=== PATIENT | male | born 1950 | race Caucasian/White ===

== ENCOUNTER → 2019-08-29 09:33 | Outpatient (BNVA) | payer MEDICARE, MEDICAID, SELFPAY | PROVIDERS: Family Provider Nurse Practitioner Family; PCP Nurse Practitioner Family; Visit Provider Nurse Practitioner | DX: G89.29 Other chronic pain (principal); M54.6 Pain in thoracic spine; M54.5 Low back pain; F17.210 Nicotine dependence, cigarettes, uncomplicated; Z79.891 Long term (current) use of opiate analgesic | CPT/HCPCS: 99214 ==

== ENCOUNTER → 2019-10-30 12:27 | Outpatient (BNVA) | payer MEDICARE, MEDICAID, SELFPAY | PROVIDERS: Family Provider Nurse Practitioner Family; PCP Nurse Practitioner Family; Visit Provider Anesthesiology | DX: G89.29 Other chronic pain (principal); M54.5 Low back pain; M79.651 Pain in right thigh; M79.652 Pain in left thigh; M54.2 Cervicalgia; F17.210 Nicotine dependence, cigarettes, uncomplicated; Z79.891 Long term (current) use of opiate analgesic; Z71.6 Tobacco abuse counseling | CPT/HCPCS: 99214 ==

== ENCOUNTER → 2020-02-24 08:38 | Outpatient (BNVA) | payer MEDICARE, MEDICAID, SELFPAY | PROVIDERS: Family Provider Nurse Practitioner Family; PCP Nurse Practitioner Family; Visit Provider Nurse Practitioner | DX: G89.29 Other chronic pain (principal); M54.5 Low back pain; F17.210 Nicotine dependence, cigarettes, uncomplicated; Z79.891 Long term (current) use of opiate analgesic; Z71.6 Tobacco abuse counseling | CPT/HCPCS: 99213 ==

== ENCOUNTER → 2020-04-23 08:47 | Outpatient (BNVA) | payer MEDICARE, MEDICAID, SELFPAY | PROVIDERS: Family Provider Nurse Practitioner Family; PCP Nurse Practitioner Family; Visit Provider Nurse Practitioner | DX: G89.29 Other chronic pain (principal); M54.42 Lumbago with sciatica, left side; M54.41 Lumbago with sciatica, right side; M54.2 Cervicalgia; F17.210 Nicotine dependence, cigarettes, uncomplicated; Z79.891 Long term (current) use of opiate analgesic; Z71.6 Tobacco abuse counseling | CPT/HCPCS: 99213 ==

== ENCOUNTER → 2020-06-25 07:58 | Outpatient (BNVA) | payer MEDICARE, MEDICAID, SELFPAY | PROVIDERS: Family Provider Nurse Practitioner Family; PCP Nurse Practitioner Family; Visit Provider Anesthesiology | DX: G89.29 Other chronic pain (principal); M54.5 Low back pain; M54.2 Cervicalgia; R20.0 Anesthesia of skin; R20.2 Paresthesia of skin; F17.210 Nicotine dependence, cigarettes, uncomplicated; Z79.891 Long term (current) use of opiate analgesic; Z71.6 Tobacco abuse counseling | CPT/HCPCS: 99214 ==

== ENCOUNTER → 2020-08-24 08:27 | Outpatient (BNVA) | payer MEDICARE, MEDICAID, SELFPAY | PROVIDERS: Family Provider Nurse Practitioner Family; PCP Nurse Practitioner Family; Visit Provider Nurse Practitioner | DX: G89.29 Other chronic pain (principal); M54.5 Low back pain; M54.2 Cervicalgia; F17.210 Nicotine dependence, cigarettes, uncomplicated; Z71.6 Tobacco abuse counseling; Z79.899 Other long term (current) drug therapy; Z79.891 Long term (current) use of opiate analgesic | CPT/HCPCS: 99213; 99214 ==

== ENCOUNTER → 2020-10-19 08:35 | Outpatient (BNVA) | payer MEDICARE, MEDICAID, SELFPAY | PROVIDERS: Family Provider Nurse Practitioner Family; PCP Nurse Practitioner Family; Visit Provider Nurse Practitioner | DX: G89.29 Other chronic pain (principal); M54.5 Low back pain; M54.2 Cervicalgia; R20.0 Anesthesia of skin; R20.2 Paresthesia of skin; F17.210 Nicotine dependence, cigarettes, uncomplicated; Z79.899 Other long term (current) drug therapy; Z71.6 Tobacco abuse counseling | CPT/HCPCS: 99213; 99214 ==

== ENCOUNTER → 2020-11-23 08:09 | Outpatient (BNVA) | payer MEDICARE, MEDICAID, SELFPAY | PROVIDERS: Family Provider Nurse Practitioner Family; PCP Nurse Practitioner Family; Visit Provider Anesthesiology | DX: G89.29 Other chronic pain (principal); M54.5 Low back pain; F17.210 Nicotine dependence, cigarettes, uncomplicated; Z79.899 Other long term (current) drug therapy; Z79.891 Long term (current) use of opiate analgesic; Z71.6 Tobacco abuse counseling | CPT/HCPCS: 99213 ==

== ENCOUNTER → 2021-01-21 08:21 | Outpatient (BNVA) | payer MEDICARE, MEDICAID, SELFPAY | PROVIDERS: Family Provider Nurse Practitioner Family; PCP Nurse Practitioner Family; Visit Provider Anesthesiology | DX: G89.29 Other chronic pain (principal); M54.5 Low back pain; M54.2 Cervicalgia; R20.0 Anesthesia of skin; R20.2 Paresthesia of skin; F17.210 Nicotine dependence, cigarettes, uncomplicated; Z79.891 Long term (current) use of opiate analgesic | CPT/HCPCS: 99214 ==

== ENCOUNTER → 2021-03-22 08:50 | Outpatient (BNVA) | payer MEDICARE, MEDICAID, SELFPAY | PROVIDERS: Family Provider Nurse Practitioner Family; PCP Nurse Practitioner Family; Visit Provider Anesthesiology | DX: G89.29 Other chronic pain (principal); M54.5 Low back pain; M54.2 Cervicalgia; F17.210 Nicotine dependence, cigarettes, uncomplicated; Z79.891 Long term (current) use of opiate analgesic | CPT/HCPCS: 99214 ==

== ENCOUNTER → 2021-05-20 08:07 | Outpatient (BNVA) | payer MEDICARE, MEDICAID, SELFPAY | PROVIDERS: Family Provider Nurse Practitioner Family; PCP Nurse Practitioner Family; Visit Provider Anesthesiology | DX: G89.29 Other chronic pain (principal); M54.50 Low back pain, unspecified; M54.2 Cervicalgia; F17.210 Nicotine dependence, cigarettes, uncomplicated; Z79.891 Long term (current) use of opiate analgesic | CPT/HCPCS: 99214 ==

== ENCOUNTER → 2021-07-20 08:19 | Outpatient (BNVA) | payer MEDICARE, MEDICAID, SELFPAY | PROVIDERS: Family Provider Nurse Practitioner Family; PCP Nurse Practitioner Family; Visit Provider Anesthesiology | DX: G89.29 Other chronic pain (principal); M54.50 Low back pain, unspecified; M54.2 Cervicalgia; F17.200 Nicotine dependence, unspecified, uncomplicated; Z79.899 Other long term (current) drug therapy; Z79.891 Long term (current) use of opiate analgesic; Z71.6 Tobacco abuse counseling | CPT/HCPCS: 99214 ==

== ENCOUNTER → 2021-09-21 07:47 | Outpatient (BNVA) | payer MEDICARE, MEDICAID, SELFPAY | PROVIDERS: Family Provider Nurse Practitioner Family; PCP Nurse Practitioner Family; Visit Provider Anesthesiology | DX: G89.29 Other chronic pain (principal); M54.50 Low back pain, unspecified; M54.2 Cervicalgia; F17.210 Nicotine dependence, cigarettes, uncomplicated; Z79.891 Long term (current) use of opiate analgesic; Z71.6 Tobacco abuse counseling | CPT/HCPCS: 99214 ==

== ENCOUNTER 2022-05-03 12:49 | Outpatient (CLI) | payer MEDICARE, MEDICAID, SELFPAY ==
--- NOTE | 2022-05-03 13:04 | US_ITS ---
WS: [id number] ULTRASOUND SOFT TISSUES LEFT neck. HISTORY: CERVICAL LYMPHADENOPATHY/SKIN LESION COMPARISON: None available. TECHNIQUE: 2-D and color Doppler imaging is submitted. Hypoechoic lobulated soft tissue masses with increased vascularity in the LEFT neck. Lymph nodes are localized in the inferior articular region. Abnormal mass along the cervical chain. These are lymph n odes which are abnormal in echogenicity and vascularity. The largest cluster measures 1.6 x 1.0 x 1.0 cm. This is probably several adjacent lymph nodes. US/US soft tissue head neck [id number] IMPRESSION: LEFT neck mass. Favor lymphadenopathy. Recommend neck CT with IV contrast. This will help determine if these are lymph nodes or mass associated with the saliv kala gland.
== END 2022-05-03 12:50 | disposition home or self-care (01) ==
LOC: RAD 12:49
PROVIDERS: PCP Nurse Practitioner Family; Visit Provider Nurse Practitioner Family
DX: R59.0 Localized enlarged lymph nodes (principal); L98.9 Disorder of the skin and subcutaneous tissue, unspecified
CPT/HCPCS: 76536

== ENCOUNTER 2022-06-13 10:16 | Outpatient (CLI) | payer MEDICARE, MEDICAID, SELFPAY ==
--- NOTE | 2022-06-13 10:28 | CT_ITS ---
WS: [id number] CT NECK TECHNIQUE: Contrast-enhanced CT of the neck with coronal and sagittal reformatted images. CLINICAL INFORMATION: CERVICAL LYMPHADENOPATHY COMPARISON: Ultrasound May 03, 2022 DLP: 251.[address] scans at [facility] use at least one of these dose optimization techniques: automated e xposure control; mA and/or kV adjustment per patient size (includes targeted exams where dose is matc hed to clinical indication); or iterative reconstruction. FINDINGS: Heterogeneous enhancing lobulated lesion in the deep lobe LEFT parotid extending to the tail compatib le with previously described lesion on the ultrasound. This measures approximately 1.9 x 1.5 x 2.6 cm . Findings suspicious for parotid neoplasm. Recommend ENT consultation. Associated peripheral vascula rity. Lesion is intensely enhancing. Additional similar enhancing lymph nodes superficial and deep to the sternocleidomastoid suspicious f or metastatic lymphadenopathy measuring up to 16 mm. Mastoid air cells are well aerated. Paranasal sinuses are well aerated. Normal parapharyngeal fat. No rmal posterior nasopharynx. No evidence of supraglottic or glottic mass. Normal piriform sinuses. Sub glottic airway is patent. Normal thyroid gland enhancement. Lung apices are well aerated. Straightening of the normal cervical lordosis. Mild spondylitic changes. Disc space narrowing worse a t C5-C7. CT/CT neck w con* [id number] IMPRESSION: 1. Lobulated intensely enhancing intraparotid lesion involving the deep lobe a nd tail of the parotid gland corresponds to the ultrasound findings suspicious for neoplasm. Recommend ENT consultation in further evaluation. 2. Enhancing suspicious lymph nodes superficial and deep to the LEFT parotid g land suspicious for metastatic lymphadenopathy measuring up to 16 mm. 3. No visualized enlarged RIGHT cervical lymph nodes 4. No other suspicious findings.
[2022-06-13 11:11] LABS: Blood Urea Nitrogen 10 mg/dL (8-23)
[2022-06-13] MEDS: iohexol 350 mg/mL 100 mL Btl IV (11:15)
== END 2022-06-13 10:17 | disposition home or self-care (01) ==
PROVIDERS: PCP Nurse Practitioner Family; Visit Provider Nurse Practitioner Family
DX: R59.0 Localized enlarged lymph nodes (principal)
CPT/HCPCS: 70491; 82565; 84520

== ENCOUNTER → 2022-06-23 10:07 | Outpatient (BNVA) | payer MEDICARE, MEDICAID, SELFPAY | PROVIDERS: PCP Nurse Practitioner Family; Visit Provider Otolaryngology | DX: K11.8 Other diseases of salivary glands (principal); R22.1 Localized swelling, mass and lump, neck; F17.210 Nicotine dependence, cigarettes, uncomplicated | CPT/HCPCS: 99203 ==

== ENCOUNTER 2022-07-26 10:53 | Outpatient (CLI) | payer MEDICARE, MEDICAID, SELFPAY ==
--- NOTE | 2022-07-26 12:37 | US_ITS ---
WS: [id number] ULTRASOUND PAROTID FNA CLINICAL INFORMATION: Left sided parotid gland mass TECHNIQUE: Ultrasound-guided FNA FINDINGS: The procedure including risks, benefits, and complications were discussed with the patient who agreed to proceed. Timeout was performed. Using sterile technique patient was prepped and draped in usual sterile fashion. After 1% lidocaine, using ultrasound guidance, a 25-gauge needle was advanc ed into the LEFT parotid mass . 5 passes were made with active aspiration. Pathology was present for slide preparation. No immediate complications. Patient remained in the ultrasound suite 15 minutes postprocedure with intermittent ultrasound to ens ure no hematoma. No hematoma 15 minutes postprocedure. US/US biopsy/FNA thyroid [id number] IMPRESSION: Uncomplicated ultrasound-guided parotid mass FNA
[2022-07-27 13:06] LABS: Lymphoma Profile (BBPL) See Report
== END 2022-07-26 10:54 | disposition home or self-care (01) ==
LOC: RAD 10:53
PROVIDERS: PCP Nurse Practitioner Family; Visit Provider Otolaryngology
DX: K11.8 Other diseases of salivary glands (principal)
CPT/HCPCS: 10005; 88108; 88184; 88185

== ENCOUNTER → 2022-08-07 09:09 | Outpatient (BNVA) | payer MEDICARE, MEDICAID, SELFPAY | PROVIDERS: PCP Nurse Practitioner Family; Visit Provider Otolaryngology | DX: K11.8 Other diseases of salivary glands (principal); R59.0 Localized enlarged lymph nodes; F17.210 Nicotine dependence, cigarettes, uncomplicated | CPT/HCPCS: 99213 ==

== ENCOUNTER → 2022-09-15 08:57 | Outpatient (BNVA) | payer MEDICARE, MEDICAID, SELFPAY | PROVIDERS: PCP Nurse Practitioner Family; Visit Provider Otolaryngology | DX: K11.8 Other diseases of salivary glands (principal); R59.0 Localized enlarged lymph nodes | CPT/HCPCS: 99214; 99215 ==

== ENCOUNTER 2022-09-28 06:55 | Day surgery (SDC) | payer MEDICARE, MEDICAID, SELFPAY ==
[2022-09-27 12:56] VITALS: BMI 28.4
[2022-09-28] VITALS (10 sets, daily range): BP systolic 122–160; BP diastolic 73–103; PULSE 51–101; RESP 6–20; TEMP 36.1–36.7; O2SAT 93–98
--- NOTE | 2022-09-28 07:08 | ECG_ITS ---
[facility] Test Date: 2022-09-28 Pat Name: Joey Soliz Department: Room: Gender: Male Catering Server: : 1950 Requested By: Madalyn Johnson Order Number: [id number] Dharmesh MD: Elaina Yanez M.D. Measurements Intervals [place] Rate: 52 P: 49 MA: 192 QRS: -23 QRSD: 91 T: 58 QT: 449 QTc: 419 Interpretive Statements SINUS BRADYCARDIA BORDERLINE LEFT AXIS DEVIATION [QRS AXIS < -20] Compared to ECG 07/19/2016 10:59:54 Sinus rhythm no longer present Electronically Signed On 09-29-2022 8:15:59 CHAIR [employer]KER by Elaina Yanez M.D. [email or web address]
[2022-09-28] MEDS: sodium chloride 0.9% 1,000 ML 30 ML IV (07:30)
--- NOTE | 2022-09-28 07:59 | ANES.PREANE2 ---
Pre-Anesthetic Assessment Height/Weight: Height 1.68 m Weight 79.832 kg Temp Pulse Resp BP Pulse Ox O2 Del Method 98.1 F 51 L 18 148/88 95 09/28/22 07:10 09/28/22 07:10 09/28/22 07:10 09/28/22 07:10 09/28/22 07:10 09/28/22 07:12 Preop Diagnosis: Left parotid mass with cervical lymphadenopathy Operation Date: 09/28/22 08:35 Proposed Procedures p left sided parotidectomy with lymph node resection 60795 ,K11.8(Left) - Tony Novak MD Familial anesthetic complications: None Was Beta Alfonzo taken within 24 hours: N/A Was Clonidine taken within 24 hours: N/A Last intake: Intake Last Liquid Date 09/27/22 Last Liquid Time 22:00 Last Solid Date 09/27/22 Last Solid Time 12:00 Social Tobacco and No alcohol Exam alert, oriented x 3, clear to auscultation bilaterally and regular rate & rhythm Airway Mallampati: Class IV Dentition: false Pulmonary Chronic Obstructive Pulmonary Disease CV/HEM Hypertension GI Gastroesophageal Reflux Disease Metabolic Hyperlipidemia Neuropsych Cerebrovascular Accident Anesthetic Plan ASA status: 4 Anesthesia: General Risk of > 500 ml blood loss (7ml/kg in children): No Medications/Allergies Home Medications Medication Instructions Recorded Confirmed Last Taken Type pantoprazole 40 mg tablet,delayed 40 mg PO QAM 08/29/19 09/27/22 09/27/22 History release simvastatin 40 mg tablet 40 mg PO .DAY 08/29/19 09/27/22 09/27/22 History aspirin 81 mg tablet 81 mg PO DAILY 10/30/19 09/27/22 1 Month Ago History ~08/27/22 tamsulosin 0.4 mg capsule (Flomax) 0.8 mg PO DAILY 10/30/19 09/27/22 09/27/22 History lisinopril 10 mg tablet 10 mg PO DAILY 07/20/21 09/27/22 09/27/22 History hydrocodone 10 mg-acetaminophen 1 tab PO .6 times a day PRN pain 09/21/21 09/27/22 09/27/22 Rx 325 mg tablet 30 days #180 tabs Allergies Allergy/AdvReac Type Severity Reaction Status Date / Time duloxetine Allergy Severe ADR-Itching Verified 09/27/22 12:50 gabapentin AdvReac Unknown DIZZINESS, Verified 09/27/22 12:50 NAUSEA PFSH Anesthesia Medical History Chronic low back pain Chronic neck pain Cigarette smoker motivated to quit Encounter for long-term opiate analgesic use Long-term use of high-risk medication Continue to monitor use of medication Neck pain of over 3 months duration Numbness and tingling Upper thigh bilateral Smoker counselled regarding smoking cessation Surgical History S/P appendectomy S/P cholecystectomy S/P thoracotomy 04/19/19 IN [place] FOR THE LUNG NODULE Family History Father CAD (coronary artery disease) Social History Smoking and tobacco status: current every day smoker (1 ppd) cigarettes Packs smoked per day: 1 Alcohol intake: never History of recent travel: No Data Anesthesia Cardiac Studies: No Data to Display
--- NOTE | 2022-09-28 08:32 | W.PM.OPSUD ---
Surgery/Procedure H&P Update DATE OF PROCEDURE: September 28, 2022 DATE H&P PERFORMED: 09/15/22 H&P UPDATE INFORMATION: I have reviewed H&P completed within last 30 days, I have examined patient prior to procedure and No changes to prior documentation CHANGES TO PREVIOUS DOCUMENTATION: No changes PREOP DIAGNOSIS: Left parotid mass with cervical lymphadenopathy PRIMARY INDICATION FOR PROCEDURE: Left parotid mass with left cervical lymphadenopathy PLANNED PROCEDURE: Operation Date: 09/28/22 08:35 Proposed Procedures p left sided parotidectomy with lymph node resection 88372 ,K11.8(Left) - Tony Novak MD
[2022-09-28] MEDS: ceFAZolin 2,000 MG in sodium chloride 0.9% (plus) 50 ML 100 MG IV (08:46)
[2022-09-28] MEDS: lidocaine-epi 2% 1.7mL Cartridge (OR Only) 6.8 ML XX (09:05)
--- NOTE | 2022-09-28 10:54 | PC.NURSE ---
sent message to significant other that everything is going well, waiting for pathology and still working.
--- NOTE | 2022-09-28 11:35 | PM.OP ---
Operative Report Date of procedure: September 28, 2022 Pre-op diagnosis: Preop Diagnosis Left parotid mass with cervical lymphadenopathy Post-op diagnosis: Left parotid mass with atypical cellular findings. Defer to permanent pathology. Lymph nodes left neck uncertain pathology. Post-op findings: Patient has a solid tumor in the lateral lobe of the left parotid gland inferiorly. Facial nerve identified and dissected. Preserved. Cervical lymphadenectomy also performed for diagnostic purpose. Most inferior node removed measuring approximately 3 cm x 1.5 x 1.5 cm Procedure done: Left lateral lobe parotidectomy with facial nerve dissection and preservation. Cervical lymphadenectomy left neck. Implants: Quarter inch [place] drain. Specimens removed/disposition: Lateral lobe of thyroid and left neck lymph nodes Pathology: Same Surgeon: Tony Novak MD Anesthesia: General and Local Estimated blood loss: 200 mL Complications: No complications encountered Findings: Patient noted to have an enlarging left lower tail of parotid region mass with lymph nodes. These were found on ultrasound and subsequent CT scan. Brought to the operating room today to undergo lateral lobe parotidectomy and possible neck dissection or lymphadenectomy for diagnostic purposes. Brief History: 72-year-old male patient had a left parotid mass with cervical lymphadenopathy found on CT scan and ultrasound. Being brought to the operating room at this time to undergo left parotidectomy lateral lobe with facial nerve dissection and preservation and either lymphadenectomy or left neck dissection if appropriate based on pathology. The procedures risks and complications were explained in detail. These risks include bleeding infection numbness scarring swelling bruising. Is understood that there will be cosmetic change. Understood that there may be numbness around the ear front and back as well as weakness of any or all branches of the facial nerve which could be temporary or permanent. Other nerves involving the tongue and vocal cords and shoulder are also at potential risk. Anesthetic risks were discussed as well. With all these things understood informed consent was granted and witnessed. Other potential problems include Sheryl syndrome or gustatory sweating and fistula or sinus tract formation or seroma or hematoma. Procedure: Description of procedure: The patient was placed on the operating table in the supine position. Adequate general endotracheal tube anesthesia was obtained. He was repositioned into a semirecumbent position. Left neck was exposed. Patient received antibiotics for prophylaxis. The patient had the sign the site noted and the area of the incision cleansed with alcohol. Then a total of 6.8 mL of 2% Xylocaine with 1-100,000 epinephrine was used to infiltrate the area of the skin incision. A timeout was accomplished identifying the patient date of plan procedure allergies fire risk and medications given. With all in agreement the procedure continued. The patient was prepped and draped in usual fashion. A marking pen was used to create the incision with the preauricular extension up to the top of the ear extending down around the ear lobule at 90 degrees and then another curve 90 degrees ending into a lower neck skin crease line. This incision was created with cut mode of the Bovie on low power. Then this was carried down to the parotid fascia level with careful dissection. The greater auricular nerve was identified and dissected up as far as I could go to preserve it until it showed that it went and extended into the parotid tumor mass. The dissection was then carried out finding the tragal pointer and following it down to the location of the trunk of the facial nerve. All this dissection was done very carefully and bipolar cautery was utilized for cutting through the subcutaneous tissues and small vessels. Then the inferior most aspect of the facial nerve branch was followed to its extension outside of the parotid gland inferiorly. Then the marginal mandibular branch buccal branch zygomatic branch and frontal branches were identified and dissected free as well. The parotid resection of the lateral lobe was then forwarded to pathology for frozen section. All that was pending hemostasis was obtained with bipolar cautery. Then it was decided to dissect down to the lowest of the lymph nodes that was the largest. This was down in the level 3 and 4 region. Careful dissection was carried out and again hemostasis obtained with bipolar cautery. The specimen was resected measuring approximately 3 x 1-1/2 x 1-1/2 cm. This was sent fresh to pathology as well. At this point pathology called back with the frozen section of the parotid tumor saying that there were some atypical cells but he could not make a call regarding type. Possibly a pleomorphic adenoma or possibly a carcinoma ex pleomorphic adenoma. He wants to defer to permanent section. He did not see anything for sure on the lymph node that would make us suspicious however he did want to do lymph testing on that and the tumor itself. The surgical defect was then irrigated with sterile water. Greater auricular nerve endings were placed in the proper position. 1/4 inch [place] drain was placed to the depths of the defect and out the anterior inferior aspect of the neck incision. Then the incision was closed with interrupted 4-0 chromic to close the subcutaneous layer and then skin jose c to close the skin. The area was then cleansed. Drapes were removed. Neosporin ointment was applied over the incision. Fluffs were placed and Kerlix rolls were placed around his neck and over his forehead and left side of the face. These were taped in place. Patient tolerated the procedure well and was turned over to anesthesia for wake-up and extubation. Estimated blood loss for the procedure was 200 mL.
[2022-09-28] MEDS: neomycin-poly-bacitracin oint 28 gm 1 APPLIC TOPICAL (11:37)
[2022-09-28] MEDS: ondansetron 2 mg/ML SDV 2 mL 4 MG IVP ×2 (12:02→12:44)
--- NOTE | 2022-09-28 17:14 | ANE.PACU2 ---
Inpatient post-anesthesia follow up: Airway intact: Yes Vital signs: Temperature 97.9 F Pulse Rate 93 Respiratory Rate 18 Blood Pressure 151/89 Pulse Oximetry 93 Oxygen Delivery Me thod Room Air Oxygen Flow Rate 6 Fraction of Inspir ed Oxygen Hydration adequate: Yes Nausea and vomiting: No Pain level: 1 Mental status: Baseline
[2022-09-29 14:00] LABS: Lymphoma Profile (BBPL) See Report
[2022-09-29 14:01] LABS: Lymphoma Profile (BBPL) See Report
== END 2022-09-28 14:00 | disposition home or self-care (01) ==
PROVIDERS: PCP Nurse Practitioner Family; Visit Provider Otolaryngology
PROC: (CPT 42410; principal; 2022-09-28 08:35)
DX: C7A.8 Other malignant neuroendocrine tumors (principal); J44.9 Chronic obstructive pulmonary disease, unspecified; I10 Essential (primary) hypertension; K21.9 Gastro-esophageal reflux disease without esophagitis; E78.5 Hyperlipidemia, unspecified; Z86.73 Personal history of transient ischemic attack (TIA), and cerebral infarction without residual deficits; Z79.82 Long term (current) use of aspirin; Z79.899 Other long term (current) drug therapy; F17.210 Nicotine dependence, cigarettes, uncomplicated
CPT/HCPCS: 38510; 42415; 51702; 88184; 88185; 88307; 88331; 88342; 93005; A4216; J0690; J1100; J1170; J2405; J2704; J3010; J3490; J7030

== ENCOUNTER → 2022-10-02 16:03 | Outpatient (BNVA) | payer MEDICARE, MEDICAID, SELFPAY | PROVIDERS: PCP Nurse Practitioner Family; Visit Provider Otolaryngology | DX: Z48.89 Encounter for other specified surgical aftercare (principal); K11.8 Other diseases of salivary glands; R59.0 Localized enlarged lymph nodes | CPT/HCPCS: 99024 ==

== ENCOUNTER → 2022-10-06 08:13 | Outpatient (BNVA) | payer MEDICARE, MEDICAID, SELFPAY | PROVIDERS: PCP Nurse Practitioner Family; Visit Provider Otolaryngology | DX: Z48.89 Encounter for other specified surgical aftercare (principal); C7A.8 Other malignant neuroendocrine tumors | CPT/HCPCS: 99024 ==

== ENCOUNTER 2022-10-16 10:31 | Oncology outpatient (recurring) (ONCR) | payer MEDICARE, MEDICAID, SELFPAY | END 2022-10-17 23:59 | disposition home or self-care (01) | PROVIDERS: PCP Nurse Practitioner Family; Visit Provider Internal Medicine Hematology & Oncology | DX: C7A.8 Other malignant neuroendocrine tumors (principal); C7B.8 Other secondary neuroendocrine tumors; F17.210 Nicotine dependence, cigarettes, uncomplicated; Z79.899 Other long term (current) drug therapy | CPT/HCPCS: 99204 ==

== ENCOUNTER 2022-10-21 06:36 | Outpatient (CLI) | payer MEDICARE, MEDICAID, SELFPAY ==
--- NOTE | 2022-10-21 11:30 | PETR_ITS ---
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 LABS AND CLINICAL REPORTS: Glucose: 88 mg/dl Treatment strategy for malignancy (PET staging): Initial Staging (PI) TECHNIQUE: Imaging protocol: Following at least four-hour fasting and following the injection of F-18-FDG, low dose CT images were obtained. Then, PET images were obtained. Attenuation corrected images were constructed using the CT scan. Fused images of PET and CT were reviewed. The standardized uptake values (SUV) reported below are maximum values within a region of interest, expressed in gm/ml. Exam includes vertex to mid-thigh. Radiopharmaceutical: 14.09 mCi F-18 FDG (Fluorodeoxyglucose), IV. Time of imaging post radiopharmaceutical administration: 58.6 minutes. Injection site: Left antecubital vein. COMPARISON: 1. US guided biopsy left parotid 07/26/2022. 2. CT neck w contrast 06/13/2022. 3. US soft tissue head neck [id number] 05/03/2022. 4. CTA head and neck 07/19/2016 FINDINGS: Brain: Visualized brain has normal physiologic uptake. Salivary glands: The neuroendocrine tumor at the posterior aspect of the left parotid is mildly hypermetabolic with an SUV max of 3.5. Without intravenous iodinated contrast, its margins are not clearly delineated. On the CT on 06/13/2022, it was 3.0 x 1.6 x 2.5 cm. The other salivary glands are unremarkable. Pharynx: No abnormal uptake. Larynx: No abnormal uptake. Thyroid: The thyroid gland is normal. Lungs, pleura and trachea: No abnormal uptake. No suspicious pulmonary nodules. There is a 5 mm calcified granuloma at the posterior segment of the left upper lobe. Heart: Normal physiologic uptake. Heart size is normal. Mediastinal space: No abnormal uptake. Liver: No abnormal uptake. Gallbladder and bile ducts: No abnormal uptake. Post cholecystectomy. No biliary ductal dilatation. Pancreas: No abnormal uptake. Spleen: No abnormal uptake. Adrenal glands: No abnormal uptake. Kidneys and ureters: Normal physiologic uptake. Stomach and bowel: No abnormal uptake. Reproductive: Moderate prostate enlargement, 5.0 cm in transverse dimension. It is not unusually FDG avid. Its SUVmax is 2.7. Vasculature: There is mild calcific atherosclerosis of the abdominal aorta and iliac arteries. There is no aortic aneurysm. 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 Lymph nodes: A left level IIa (anterior upper jugular) cervical lymph node is mildly hypermetabolic with an SUV max of 3.6. Without intravenous iodinated contrast, its margins are not clearly delineated (image 3:41). On the CT on 06/13/2022, it was 1.4 x 1.5 x 1.7 cm (TR x AP x CC). A left level IIb (posterior upper jugular) cervical lymph node is moderately hypermetabolic with an SUV max of 5.8. It is 1.0 x 0.7 cm, which is unchanged from the comparison CT on 06/13/2022 (image 3:34). There are no other enlarged or FDG avid lymph nodes. Bones/joints: No metabolically active areas. Soft tissues: No metabolically active areas. PET/PET skulltothi INITIAL [id number] IMPRESSION: 1. The neuroendocrine tumor at the posterior aspect of the left parotid is mildly hypermetabolic with an SUV max of 3.5. 2. A left level IIa cervical lymph node is mildly hypermetabolic with an SUV max of 3.6. A left level IIb cervical lymph node is moderately hypermetabolic with an SUV max of 5.8. There are no other enlarged or FDG avid lymph nodes elsewhere in the body. 3. No FDG avid distant metastases. 4. An octreoscan may be helpful to demonstrate the presence of somatostatin receptors in tumor cells, which can be amenable to radiometabolic treatment.
== END 2022-10-21 06:37 | disposition home or self-care (01) ==
LOC: RAD 10-23 06:37
PROVIDERS: PCP Nurse Practitioner Family; Visit Provider Internal Medicine Hematology & Oncology
DX: C7A.8 Other malignant neuroendocrine tumors (principal)
CPT/HCPCS: 78815; A9552

== ENCOUNTER → 2022-11-03 08:04 | Outpatient (BNVA) | payer MEDICARE, MEDICAID, SELFPAY | PROVIDERS: PCP Nurse Practitioner Family; Visit Provider Otolaryngology | DX: Z48.89 Encounter for other specified surgical aftercare (principal); C7A.8 Other malignant neuroendocrine tumors; R59.0 Localized enlarged lymph nodes | CPT/HCPCS: 99024 ==

== ENCOUNTER 2022-11-07 08:50 | Oncology outpatient (recurring) (ONCR) | payer MEDICARE, MEDICAID, SELFPAY ==
[2022-11-07 09:37] LABS: Basophils % 0.6 %; Eosinophils # 0.1 10^3/uL (0.0-0.8); Eosinophils % 1.4 %; Hematocrit 45.9 % (42.0-52.0); Hemoglobin 14.8 g/dL (11.7-16.6); Lymphocytes # 1.7 10^3/uL (0.8-4.8); Mean Corpuscular HGB Conc 32.2 g/dL (30.0-36.0); Mean Corpuscular Hemoglobin 29.7 pg (28.0-34.0); Mean Corpuscular Volume 92.2 fl (80-94); Mean Platelet Volume 11.1 fL (7.4-10.4); Monocytes # 0.5 10^3/uL (0.2-0.9); Neutrophils % 66.6 %; Nucleated Red Blood Cells % 0 %; Platelet Count 164 10^3/cmm (130-400); Red Blood Count 4.98 10^6/uL (4.1-5.3); Red Cell Distribution Width 13.3 % (12.1-15.1); White Blood Count 7.1 10^3/uL (4.0-10.0)
[2022-11-07 10:44] LABS: Alanine Aminotransferase 9 U/L (0-41); Alkaline Phosphatase 86 U/L (40-130); Anion Gap 14.3 (5-19); Aspartate Amino Transferase 13 U/L (0-40); Blood Urea Nitrogen 10 mg/dL (8-23); Calcium 8.7 mg/dL (8.5-10.5); Carbon Dioxide 25 mmol/L (22-29); Chloride 104 mmol/L (98-107); Globulin 2.5 g/dL (1.3-4.6); Glucose 84 mg/dL (65-115); Osmolality Calculated 286 mOsm/kg (285-295); Potassium 4.3 mmol/L (3.5-5.1); Sodium 139 mmol/L (136-145); Total Bilirubin 0.8 mg/dL (0.15-1.2); Total Protein 6.5 g/dL (6.6-8.7)
== END 2022-11-17 23:59 | disposition home or self-care (01) ==
PROVIDERS: PCP Nurse Practitioner Family; Visit Provider Internal Medicine Hematology & Oncology
DX: C7A.8 Other malignant neuroendocrine tumors (principal); C7B.8 Other secondary neuroendocrine tumors; Z87.891 Personal history of nicotine dependence
CPT/HCPCS: 36415; 80053; 85025; 99214

== ENCOUNTER 2022-11-28 11:35 | Oncology outpatient (recurring) (ONCR) | payer MEDICARE, MEDICAID, SELFPAY | END 2022-12-17 23:59 | disposition home or self-care (01) | LOC: ONCMED 11:36 | PROVIDERS: PCP Nurse Practitioner Family; Visit Provider Internal Medicine Hematology & Oncology | DX: C7A.8 Other malignant neuroendocrine tumors (principal); C7B.8 Other secondary neuroendocrine tumors; F17.210 Nicotine dependence, cigarettes, uncomplicated; Z85.828 Personal history of other malignant neoplasm of skin | CPT/HCPCS: 99214 ==

== ENCOUNTER → 2022-12-04 10:07 | Outpatient (BNVA) | payer MEDICARE, MEDICAID, SELFPAY | PROVIDERS: PCP Nurse Practitioner Family; Visit Provider Otolaryngology | DX: Z48.89 Encounter for other specified surgical aftercare (principal); C7A.8 Other malignant neuroendocrine tumors | CPT/HCPCS: 99024 ==

== ENCOUNTER → 2023-01-05 10:01 | Outpatient (BNVA) | payer MEDICARE, MEDICAID, SELFPAY | PROVIDERS: PCP Nurse Practitioner Family; Visit Provider Otolaryngology | DX: C4A.9 Merkel cell carcinoma, unspecified (principal); C7A.8 Other malignant neuroendocrine tumors | CPT/HCPCS: 99212; 99213 ==

== ENCOUNTER → 2023-02-07 16:01 | Outpatient (BNVA) | payer MEDICARE, MEDICAID, SELFPAY | PROVIDERS: PCP Nurse Practitioner Family; Visit Provider Otolaryngology | DX: C4A.9 Merkel cell carcinoma, unspecified (principal) | CPT/HCPCS: 99213 ==

== ENCOUNTER → 2024-06-05 12:49 | Outpatient (BNVA) | payer MEDICARE, MEDICAID, SELFPAY | PROVIDERS: PCP Nurse Practitioner Family | DX: I21.3 ST elevation (STEMI) myocardial infarction of unspecified site (principal); R07.9 Chest pain, unspecified | CPT/HCPCS: 93005 ==